=== PATIENT | female | born 1990 | race Caucasian/White ===

== ENCOUNTER 2017-01-21 11:45 | Emergency (ER) | payer MEDICAID, OTHER ==
[~2017-01-21] VITALS: Ht 172.7 cm; Wt 264.0 kg
[2017-01-21 13:37] VITALS: BP 112/61
[2017-01-21] MEDS ORDERED: IBUPROFEN 600MG TABLET PO ONE (15:00)
== END 2017-01-21 15:15 | disposition left against medical advice (07) ==
LOC: ER 12:00
DX: S60.221A Contusion of right hand, initial encounter (principal); W23.0XXA Caught, crushed, jammed, or pinched between moving objects, initial encounter; Y93.89 Activity, other specified; Y92.89 Other specified places as the place of occurrence of the external cause; S62.606A Fracture of unspecified phalanx of right little finger, initial encounter for closed fracture; S62.604A Fracture of unspecified phalanx of right ring finger, initial encounter for closed fracture
CPT/HCPCS: 81025; 99282; J7030; Z7610

== ENCOUNTER 2022-05-29 22:14 | Emergency (ER) | payer MEDICAID, OTHER ==
[~2022-05-29] VITALS: Ht 172.7 cm; Wt 99.0 kg
[2022-05-29 22:33] VITALS: BP 124/83
[2022-05-29] MEDS ORDERED: KETOROLAC 60MG/2ML VIAL IM STA (23:53)
[2022-05-30] MEDS ORDERED: CYCL5TAB PO (01:11)
[2022-05-30] MEDS ORDERED: IBUP-2029 PO (01:11)
== END 2022-05-30 02:34 | disposition home or self-care (01) ==
LOC: ER 22:14
DX: S16.1XXA Strain of muscle, fascia and tendon at neck level, initial encounter (principal); M25.512 Pain in left shoulder; M25.532 Pain in left wrist; M25.552 Pain in left hip; V49.9XXA Car occupant (driver) (passenger) injured in unspecified traffic accident, initial encounter; Y93.89 Activity, other specified; Y92.89 Other specified places as the place of occurrence of the external cause; Y99.8 Other external cause status
CPT/HCPCS: 73030; 73110; 73502; 81025; 96372; 99284; J1885; A4565